=== PATIENT | male | born 1935 | race Caucasian/White ===

== ENCOUNTER 2017-04-30 19:57 | Inpatient (IN) | payer OTHER, MEDICARE, SELFPAY | END 2017-05-07 17:24 | disposition E | DRG 689 | PROVIDERS: Admitting Provider Emergency Medicine; Emergency Provider Emergency Medicine; Visit Provider Internal Medicine Adolescent Medicine | DX: N39.0 Urinary tract infection, site not specified (principal); J18.9 Pneumonia, unspecified organism; N17.9 Acute kidney failure, unspecified; E11.22 Type 2 diabetes mellitus with diabetic chronic kidney disease; B95.7 Other staphylococcus as the cause of diseases classified elsewhere; E11.9 Type 2 diabetes mellitus without complications; I10 Essential (primary) hypertension; R62.7 Adult failure to thrive; I12.9 Hypertensive chronic kidney disease with stage 1 through stage 4 chronic kidney disease, or unspecified chronic kidney disease; N18.9 Chronic kidney disease, unspecified | CPT/HCPCS: 36415; 36569; 71010; 80048; 80053; 80202; 81001; 82550; 82553; 82565; 82962; 83605; 83880; 84443; 84484; 85025; 87040; 87077; 87086; 87088; 87186; 93005; 93041; 94760; 96365; 96366; 96367; 99285; C1751; J0692; J2270; J3370 ==